=== PATIENT | female | born 1945 | race Two or more races ===

== ENCOUNTER 2018-01-16 02:06 | Emergency (ER) | payer MEDICAID, MEDICARE, OTHER ==
[~2018-01-16] VITALS: Ht 157.5 cm; Wt 72.6 kg
[~2018-01-16 02:06] MED LIST: AMLO10TA2 PO; ASPI-231 PO; FLUC100T3 PO; LIS10T PO; METF-370 PO; Pantoprazole Sodium Sesquihydr PO
[2018-01-16] MEDS ORDERED: ACETAMINOPHEN 325 MG TAB PO ONE ×2 (02:23→02:30)
[2018-01-16 07:14] LABS: Basophils # (auto) 0.1 uL; Basophils % (auto) 0.5 % (0.0-2.0); Eosinophils # (auto) 0 uL; Eosinophils % (auto) 0.2 % (0.0-7.0); Hematocrit 38.5 % (36.0-46.0); Hemoglobin 12.8 g/dL (12.2-16.2); Lymphocytes # (auto) 0.8 uL; Mean Corpuscular Hgb Conc. 33.2 g/dL (32.0-36.0); Mean Corpuscular Volume 87.4 fL (80.0-100.0); Monocytes % (auto) 6.2 % (0.0-12.0); Neutrophils # (auto) 14.3 uL; Neutrophils % (auto) 88.1 % (37.0-80.0); Nucleated Red Blood Cells % 0.1 %; Platelet Count (auto) 231 10^3/uL (140-450); Red Blood Cells 4.41 10^6/uL (4.0-5.20); White Blood Cell 16.2 10^3/uL (4.4-10.8)
[2018-01-16 07:16] LABS: Albumin 2.9 g/dL (3.4-5.0); BUN/Creatinine Ratio 15.3; Calcium 8.7 mg/dL (8.5-10.1)
[2018-01-16 07:19] LABS: Bilirubin, Total 1.1 mg/dL (0.2-1.0); Total Protein 7.8 g/dL (6.4-8.2)
[2018-01-16] MEDS ORDERED: SODIUM CHLORIDE 0.9% 2,000 ML IV ONE (07:36)
[2018-01-16 07:57] VITALS: BP 118/42
[2018-01-16 08:02] LABS: Urine Bacteria MANY /hpf (None Seen); Urine Blood 1+ /uL (Negative); Urine Mucus FEW (None Seen); Urine Specific Gravity 1.012 (1.001-1.035); Urine WBC 727 /hpf (0 - 5); Urine WBC Clumps PRESENT /hpf (None Seen)
[2018-01-16] MEDS ORDERED: LEVOFLOXACIN 500MG 100 ML IV ONE (08:45)
== END 2018-01-16 09:30 | disposition home or self-care (01) ==
LOC: ER 02:07
DX: N39.0 Urinary tract infection, site not specified (principal); E11.65 Type 2 diabetes mellitus with hyperglycemia; I10 Essential (primary) hypertension; J98.11 Atelectasis; Z90.710 Acquired absence of both cervix and uterus
CPT/HCPCS: 36415; 71045; 80053; 81001; 82962; 85025; 96361; 96365; 99285; J1956; J7030

== ENCOUNTER 2022-04-17 00:32 | Inpatient (IN) | payer OTHER, MEDICAID ==
[~2022-04-17] VITALS: Ht 162.6 cm; Wt 81.3 kg
[2022-04-17 00:30] VITALS: BP 150/52
[~2022-04-17 00:32] MED LIST changes: +AMLO-496 PO; -AMLO10TA2 PO; -ASPI-231 PO; +ASPI1TAB20 PO
[2022-04-17 01:43] LABS: Urine Bacteria MANY /hpf (None Seen); Urine Blood TRACE /uL (Negative); Urine Hyaline Cast MOD /lpf (0 - 2); Urine Mucus FEW (None Seen); Urine Specific Gravity 1.012 (1.001-1.035); Urine WBC 195 /hpf (0 - 5); Urine WBC Clumps PRESENT /hpf (None Seen)
[2022-04-17 02:14] LABS: Basophils # (auto) 0.1 10 ^3/uL (0-0.2); Basophils % (auto) 0.6 % (0.0-2.0); Eosinophils # (auto) 0.1 10 ^3/uL (0-0.8); Eosinophils % (auto) 0.9 % (0.0-7.0); Hematocrit 30.4 % (36.0-46.0); Lymphocytes # (auto) 1.4 10 ^3/uL (0.4-5.4); Lymphocytes % (auto) 11.5 % (10.0-50.0); Mean Corpuscular Hemoglobin 27.8 pg (28.0-32.0); Mean Corpuscular Volume 84.3 fL (80.0-100.0); Monocytes # (auto) 0.9 10 ^3/uL (0-1.3); Monocytes % (auto) 7.2 % (0.0-12.0); Neutrophils % (auto) 79.8 % (37.0-80.0); Red Blood Cells 3.61 10^6/uL (4.0-5.20); Red Cell Distribution Width 16.1 % (11.8-14.3); White Blood Cell 12.5 10^3/uL (4.4-10.8)
[2022-04-17 02:24] LABS: Albumin 3.2 g/dL (3.4-5.0); BUN/Creatinine Ratio 17.7; Calcium 8.9 mg/dL (8.5-10.1); Potassium 3.8 mmol/L (3.5-5.1)
[2022-04-17 02:27] LABS: Bilirubin, Total 0.6 mg/dL (0.2-1.0); Total Protein 7.6 g/dL (6.4-8.2)
[2022-04-17] MEDS ORDERED: ASPirin 81 mg TAB PO ONE (03:30)
[2022-04-17] MEDS ORDERED: MORPHINE SULFATE INJ 2 MG/ml SYRG IV PRN (07:00)
[2022-04-17] MEDS ORDERED: NITROGLYCERIN 0.4 MG SL TAB SL PRN (07:00)
[2022-04-17] MEDS ORDERED: ONDANSETRON HCL 4 MG/2 ML VIAL IV PRN (07:00)
[2022-04-17] MEDS ORDERED: ACETAMINOPHEN 325 MG TAB PO PRN (07:00)
[2022-04-17] MEDS ORDERED: DEXTROSE (50%) 50ML SYRG IV PRN (07:00)
[2022-04-17] MEDS: ACCU-CHEK COMFORT CURVE STRIP VI SCH ×4 (07:35→22:18)
[2022-04-17] MEDS: InsuLIN REG 1unit/0.01ml Soln (100units/ml) SC SCH ×4 (07:38→22:00)
[2022-04-17] MEDS: LEVOTHYROXINE SODIUM 112 MCG TAB PO SCH (07:41)
[2022-04-17] MEDS: cefTRIAXone 1GM/50ML D5W 50 ML IV SCH (08:58)
[2022-04-17] MEDS: PANTOPRAZOLE 40 MG TAB PO SCH (09:35)
[2022-04-17] MEDS: FUROSEMIDE 20 MG TAB PO SCH (09:35)
[2022-04-17] MEDS: ASPirin 81 mg TAB PO SCH (09:35)
[2022-04-17] MEDS: NIFEdipine ER 30 MG TAB PO SCH (09:36)
[2022-04-17] MEDS ORDERED: amLODIPine BESYLATE 5 MG TAB PO SCH (10:00)
[2022-04-17 18:48] VITALS: BP 167/60
[2022-04-17] MEDS: ATORVASTATIN 20 MG TAB PO SCH (22:16)
[2022-04-18] VITALS (8 sets, daily range): BP systolic 142–170; BP diastolic 44–83
[2022-04-18] MEDS ORDERED: FUR20T PO (00:17)
[2022-04-18] MEDS ORDERED: LISI-275 PO (00:17)
[2022-04-18] MEDS ORDERED: AMLO-489 PO (00:17)
[2022-04-18] MEDS ORDERED: INS7030I SC (00:17)
[2022-04-18] MEDS ORDERED: MET50T PO (00:17)
[2022-04-18] MEDS ORDERED: NIFE60TA61 (00:17)
[2022-04-18] MEDS ORDERED: ATOR10TA52 PO (00:17)
[2022-04-18] MEDS ORDERED: DOXY100C2 PO (00:17)
[2022-04-18] MEDS ORDERED: LEVO112T4 PO (00:17)
[2022-04-18 05:25] LABS: Eosinophils # (auto) 0.2 10 ^3/uL (0-0.8); Hemoglobin 9.9 g/dL (12.2-16.2); Lymphocytes # (auto) 1.2 10 ^3/uL (0.4-5.4); Mean Corpuscular Hemoglobin 26.5 pg (28.0-32.0); Monocytes # (auto) 0.6 10 ^3/uL (0-1.3); Neutrophils # (auto) 4.1 10 ^3/uL (1.6-8.6); Red Blood Cells 3.73 10^6/uL (4.0-5.20)
[2022-04-18 05:29] LABS: Basophils # (auto) 0 10 ^3/uL (0-0.2); Basophils % (auto) 0.8 % (0.0-2.0); Eosinophils % (auto) 2.7 % (0.0-7.0); Hematocrit 31.3 % (36.0-46.0); Lymphocytes % (auto) 19.4 % (10.0-50.0); Mean Corpuscular Hgb Conc. 31.5 g/dL (32.0-36.0); Mean Corpuscular Volume 83.9 fL (80.0-100.0); Monocytes % (auto) 9.5 % (0.0-12.0); Neutrophils % (auto) 67.6 % (37.0-80.0); Red Cell Distribution Width 16.3 % (11.8-14.3)
[2022-04-18 05:39] LABS: Calcium 8.8 mg/dL (8.5-10.1); Potassium 3.5 mmol/L (3.5-5.1)
[2022-04-18 05:42] LABS: BUN/Creatinine Ratio 16.4; Magnesium 2.2 mg/dL (1.6-2.6)
[2022-04-18] MEDS: LEVOTHYROXINE SODIUM 112 MCG TAB PO SCH (06:20)
[2022-04-18] MEDS: InsuLIN REG 1unit/0.01ml Soln (100units/ml) SC SCH ×4 (06:20→21:33)
[2022-04-18] MEDS: ACCU-CHEK COMFORT CURVE STRIP VI SCH ×4 (06:20→21:31)
[2022-04-18] MEDS ORDERED: ADENOSINE 68 MG in GIVE UN-DILUTED 0 ML IV STA (07:49)
[2022-04-18] MEDS: ASPirin 81 mg TAB PO SCH (08:24)
[2022-04-18] MEDS: cefTRIAXone 1GM/50ML D5W 50 ML IV SCH (08:24)
[2022-04-18] MEDS: FUROSEMIDE 20 MG TAB PO SCH (08:25)
[2022-04-18] MEDS: NIFEdipine ER 30 MG TAB PO SCH (08:25)
[2022-04-18] MEDS: PANTOPRAZOLE 40 MG TAB PO SCH (08:25)
[2022-04-18] MEDS: ATORVASTATIN 20 MG TAB PO SCH (21:31)
[2022-04-19] VITALS: BP 142/50
[2022-04-19 05:00] VITALS: BP 173/56
[2022-04-19 05:49] LABS: BUN/Creatinine Ratio 16.7; Calcium 8.8 mg/dL (8.5-10.1); Potassium 3.7 mmol/L (3.5-5.1)
[2022-04-19] MEDS: LEVOTHYROXINE SODIUM 112 MCG TAB PO SCH (06:20)
[2022-04-19] MEDS: ACCU-CHEK COMFORT CURVE STRIP VI SCH ×2 (06:21→11:30)
[2022-04-19] MEDS: InsuLIN REG 1unit/0.01ml Soln (100units/ml) SC SCH ×2 (06:21→12:00)
[2022-04-19 08:00] VITALS: BP 131/54
[2022-04-19] MEDS: FUROSEMIDE 20 MG TAB PO SCH (09:30)
[2022-04-19] MEDS: cefTRIAXone 1GM/50ML D5W 50 ML IV SCH (09:30)
[2022-04-19] MEDS: PANTOPRAZOLE 40 MG TAB PO SCH (09:30)
[2022-04-19] MEDS: ASPirin 81 mg TAB PO SCH (09:30)
[2022-04-19] MEDS: NIFEdipine ER 30 MG TAB PO SCH (09:31)
[2022-04-19] MEDS ORDERED: NIFE1TAB30 PO (10:53)
[2022-04-19 13:00] VITALS: BP 149/63
[2022-04-19] MEDS ORDERED: ASPI-325 PO (13:04)
[2022-04-19] MEDS ORDERED: CEPH-509 PO (13:06)
[2022-04-19 13:46] VITALS: BP 149/63
[2022-04-19] MEDS ORDERED: FURO1TAB33 PO (15:01)
== END 2022-04-19 15:20 | disposition home or self-care (01) | DRG 281 ==
LOC: ER 00:32 → EDBD 00:32 → TELE 06:55 → TELE-WESTW 17:30
PROVIDERS: ADMIT Nurse Practitioner; ATTEND Internal Medicine Geriatric Medicine
DX: I21.4 Non-ST elevation (NSTEMI) myocardial infarction (principal); E44.0 Moderate protein-calorie malnutrition; N39.0 Urinary tract infection, site not specified; N18.9 Chronic kidney disease, unspecified; Z20.822 Contact with and (suspected) exposure to COVID-19; E11.22 Type 2 diabetes mellitus with diabetic chronic kidney disease; E78.5 Hyperlipidemia, unspecified; I12.9 Hypertensive chronic kidney disease with stage 1 through stage 4 chronic kidney disease, or unspecified chronic kidney disease; Z79.4 Long term (current) use of insulin; Z90.710 Acquired absence of both cervix and uterus; Z68.30 Body mass index [BMI] 30.0-30.9, adult
CPT/HCPCS: 36415; 70450; 71045; 78452; 80048; 80053; 81001; 82962; 83735; 84484; 85025; 87086; 87088; 87186; 93005; 93017; 93306; 96365; 96375; 97163; G0378; J0153; J0696; J1815

== ENCOUNTER 2023-07-26 14:25 | Inpatient (IN) | payer OTHER, MEDICAID ==
[~2023-07-26] VITALS: Ht 152.4 cm; Wt 78.0 kg
[~2023-07-26 14:25] MED LIST changes: -AMLO-496 PO; +AMLO1TAB22 PO; +ASPI-325 PO; -ASPI1TAB20 PO; +ATOR10TA52 PO; +CEPH-509 PO; -FLUC100T3 PO; +FUR20T PO; +FURO1TAB33 PO; +INS7030I SC; +LEVO112T4 PO; -LIS10T PO; +LISI-275 PO; +MET50T PO; -METF-370 PO; +NIFE1TAB30 PO; -Pantoprazole Sodium Sesquihydr PO
[2023-07-26] MEDS ORDERED: SODIUM CHLORIDE 0.9% 1,000 ML IV ONE ×2 (14:45→16:15)
[2023-07-26] MEDS ORDERED: ACETAMINOPHEN 500 MG TAB PO ONE (14:45)
[2023-07-26 15:20] LABS: Basophils # (auto) 0 10 ^3/uL (0-0.2); Basophils % (auto) 0.3 % (0.0-2.0); Eosinophils # (auto) 0.1 10 ^3/uL (0-0.8); Eosinophils % (auto) 0.5 % (0.0-7.0); Hematocrit 34.6 % (36.0-46.0); Lymphocytes # (auto) 0.9 10 ^3/uL (0.4-5.4); Lymphocytes % (auto) 6.3 % (10.0-50.0); Mean Corpuscular Hemoglobin 27.6 pg (28.0-32.0); Mean Corpuscular Hgb Conc. 31.7 g/dL (32.0-36.0); Monocytes # (auto) 0.4 10 ^3/uL (0-1.3); Monocytes % (auto) 2.5 % (0.0-12.0); Neutrophils # (auto) 13.1 10 ^3/uL (1.6-8.6); Neutrophils % (auto) 90.4 % (37.0-80.0); Red Blood Cells 3.98 10^6/uL (4.0-5.20); White Blood Cell 14.5 10^3/uL (4.4-10.8)
[2023-07-26 15:37] LABS: Alanine Aminotransferase 13 U/L (7-40); Alkaline Phosphatase 94 U/L (46-116); Anion Gap 10 (5-15); Aspartate Aminotransferase 23 U/L (13-40); BUN/Creatinine Ratio 18.8 (10.0-20.0); Blood Urea Nitrogen 24 mg/dL (9-23); Carbon Dioxide 19 mmol/L (20-30); Chloride 108 mmol/L (98-107); Glucose 108 mg/dL (74-106); Lipase 23 U/L (12-53); Potassium 3.9 mmol/L (3.5-5.1); Sodium 137 mmol/L (136-145)
[2023-07-26 15:38] LABS: Albumin 3.8 g/dL (3.2-4.8); Bilirubin, Total 1.1 mg/dL (0.2-1.0); Total Protein 7.1 g/dL (5.7-8.2)
[2023-07-26 15:39] LABS: INR 1.01 (0.9-1.15); Prothrombin Time 10.6 sec (9.3-11.8)
[2023-07-26 15:59] LABS: Lactic Acid w/Reflex 2.5 mmol/L (0.4-2.0)
[2023-07-26] MEDS ORDERED: VANCOMYCIN 1GM/250ML 250 ML IV ONE (16:15)
[2023-07-26] MEDS ORDERED: PIPERACILLIN-TAZO 4.5GM 100 ML IV ONE (16:15)
[2023-07-26] MEDS ORDERED: ASPirin-EC 81 mg tab PO ONE (16:15)
[2023-07-26 18:36] VITALS: PULSE 100; RESP 18; O2SAT 95
[2023-07-26 19:11] LABS: COVID19 ANTIGEN SOFIA FIA NEGATIVE (NEGATIVE)
[2023-07-26 19:29] LABS: Urine Bacteria MANY /hpf (None Seen); Urine Blood TRACE /uL (Negative); Urine Clarity HAZY (Clear); Urine Color Yellow (Yellow); Urine Protein, UAD 2+ (Negative); Urine Specific Gravity 1.014 (1.001-1.035); Urine Urobilinogen Normal (Negative); Urine WBC 51 /hpf (0 - 5); Urine WBC Clumps PRESENT /hpf (None Seen); Urine pH 5.5 (5.0-8.0)
[2023-07-26 19:30] LABS: Rapid Influenza A Negative (Negative); Rapid Influenza B Negative (Negative)
[2023-07-26 20:04] VITALS: PULSE 84; RESP 16; O2SAT 97
[2023-07-26] MEDS ORDERED: ACETAMINOPHEN 325 MG TAB PO ONE (21:00)
[2023-07-26] MEDS ORDERED: VANCOMYCIN PER PHARMACY 0 MG IV SCH (22:00)
[2023-07-26] MEDS ORDERED: DOCUSATE SOD 100 MG CAP PO PRN (22:00)
[2023-07-26] MEDS ORDERED: ONDANSETRON HCL 4 MG/2 ML VIAL IV PRN (22:00)
[2023-07-26] MEDS ORDERED: DEXTROSE (50%) 50ML SYRG IV PRN (22:00)
[2023-07-26] MEDS ORDERED: HYDROcodone-ACET 5/325MG TAB PO PRN (22:00)
[2023-07-26] MEDS: ACCU-CHEK COMFORT CURVE STRIP VI SCH (23:28)
[2023-07-26] MEDS: InsuLIN REG 1unit/0.01ml Soln (100units/ml) SC SCH (23:35)
[2023-07-26] MEDS: SODIUM CHLORIDE 0.9% 1,000 ML IV SCH (23:35)
[2023-07-26] MEDS: ATORVASTATIN 20 MG TAB PO SCH (23:36)
[2023-07-27] MEDS ORDERED: MORPHINE SULFATE INJ 2 MG/ml SYRG IV PRN
[2023-07-27] MEDS ORDERED: NITROGLYCERIN 0.4 MG SL TAB SL PRN
[2023-07-27 06:08] LABS: Basophils # (auto) 0 10 ^3/uL (0-0.2); Basophils % (auto) 0.3 % (0.0-2.0); Eosinophils # (auto) 0 10 ^3/uL (0-0.8); Eosinophils % (auto) 0.1 % (0.0-7.0); Hematocrit 29.3 % (36.0-46.0); Hemoglobin 9.3 g/dL (12.2-16.2); Lymphocytes # (auto) 2.1 10 ^3/uL (0.4-5.4); Mean Corpuscular Hemoglobin 28.3 pg (28.0-32.0); Mean Corpuscular Hgb Conc. 31.6 g/dL (32.0-36.0); Mean Corpuscular Volume 89.4 fL (80.0-100.0); Monocytes % (auto) 5.1 % (0.0-12.0); Neutrophils # (auto) 16.2 10 ^3/uL (1.6-8.6); Neutrophils % (auto) 83.5 % (37.0-80.0); Red Blood Cells 3.28 10^6/uL (4.0-5.20); Red Cell Distribution Width 15.7 % (11.8-14.3); White Blood Cell 19.4 10^3/uL (4.4-10.8)
[2023-07-27] MEDS: ACCU-CHEK COMFORT CURVE STRIP VI SCH ×4 (06:08→21:33)
[2023-07-27] MEDS: InsuLIN REG 1unit/0.01ml Soln (100units/ml) SC SCH ×4 (06:22→21:34)
[2023-07-27] MEDS: LEVOTHYROXINE SODIUM 112 MCG TAB PO SCH (06:22)
[2023-07-27 06:24] LABS: Alanine Aminotransferase 14 U/L (7-40); Albumin 3.1 g/dL (3.2-4.8); Alkaline Phosphatase 66 U/L (46-116); Anion Gap 9 (5-15); Aspartate Aminotransferase 23 U/L (13-40); BUN/Creatinine Ratio 15.7 (10.0-20.0); Bilirubin, Total 1.7 mg/dL (0.2-1.0); Blood Urea Nitrogen 21 mg/dL (9-23); Calcium 8.4 mg/dL (8.5-10.1); Carbon Dioxide 18 mmol/L (20-30); Chloride 110 mmol/L (98-107); Glucose 174 mg/dL (74-106); Potassium 3.5 mmol/L (3.5-5.1); Sodium 137 mmol/L (136-145); Total Protein 5.8 g/dL (5.7-8.2)
[2023-07-27] MEDS: ACETAMINOPHEN 325 MG TAB PO PRN (07:12)
[2023-07-27 08:00] VITALS: PULSE 79; RESP 11; O2SAT 97
[2023-07-27] MEDS: ASPirin 81 mg TAB PO SCH (09:36)
[2023-07-27] MEDS: cefTRIAXone 1GM/50ML D5W 50 ML IV SCH (09:37)
[2023-07-27] MEDS: SODIUM CHLORIDE 0.9% 1,000 ML IV SCH (14:40)
[2023-07-27 17:24] VITALS: BP 162/67; PULSE 77; RESP 16; TEMP 97.7; O2SAT 97
[2023-07-27 17:31] VITALS: BP 162/67; PULSE 77; RESP 16; TEMP 97.7; O2SAT 97
[2023-07-27] MEDS ORDERED: FURO20TA3 PO (18:40)
[2023-07-27] MEDS: VANCOMYCIN 1GM/250ML 250 ML IV SCH (20:49)
[2023-07-27] MEDS: hydrALAZINE HCL 20 MG/ML VL IV PRN (21:37)
[2023-07-27] MEDS: ATORVASTATIN 20 MG TAB PO SCH (21:37)
[2023-07-27 22:06] VITALS: BP 170/60; PULSE 81; RESP 18; TEMP 98.4; O2SAT 97
[2023-07-28] MEDS ORDERED: CARV6.2551 PO (00:24)
[2023-07-28] MEDS ORDERED: NITR1CAP23 PO (00:24)
[2023-07-28] MEDS: SODIUM CHLORIDE 0.9% 1,000 ML IV SCH ×2 (02:25→23:57)
[2023-07-28] MEDS: ACCU-CHEK COMFORT CURVE STRIP VI SCH ×4 (06:44→21:51)
[2023-07-28] MEDS: LEVOTHYROXINE SODIUM 112 MCG TAB PO SCH (06:44)
[2023-07-28] MEDS: InsuLIN REG 1unit/0.01ml Soln (100units/ml) SC SCH ×4 (06:44→21:57)
[2023-07-28] MEDS: ACETAMINOPHEN 325 MG TAB PO PRN (08:00)
[2023-07-28 08:10] VITALS: BP 170/84; PULSE 80; PULSE 81; RESP 20; TEMP 97.8; O2SAT 98
[2023-07-28] MEDS: hydrALAZINE HCL 20 MG/ML VL IV PRN ×2 (08:59→17:26)
[2023-07-28] MEDS: ASPirin 81 mg TAB PO SCH (09:00)
[2023-07-28] MEDS: cefTRIAXone 1GM/50ML D5W 50 ML IV SCH (09:00)
[2023-07-28] MEDS ORDERED: hydrALAZINE HCL 20 MG/ML VL IV ONE (11:45)
[2023-07-28 12:10] VITALS: BP 197/83; PULSE 89; RESP 20; TEMP 98.1; O2SAT 100
[2023-07-28] MEDS ORDERED: METOPROLOL TARTRATE 50 MG TAB PO ONE (12:30)
[2023-07-28] MEDS ORDERED: LISINOPRIL 20 MG TAB PO ONE (12:30)
[2023-07-28 16:05] VITALS: BP 159/82; PULSE 74; RESP 16; TEMP 98.3; O2SAT 99
[2023-07-28 20:00] VITALS: BP 170/84; PULSE 76; PULSE 79; PULSE 80; RESP 20; TEMP 97.8; O2SAT 98
[2023-07-28] MEDS: VANCOMYCIN 1GM/250ML 250 ML IV SCH (21:33)
[2023-07-28] MEDS: ENOXAPARIN SOD 80 MG/0.8ML SYRINGE SC SCH (21:49)
[2023-07-28] MEDS: ATORVASTATIN 20 MG TAB PO SCH (21:49)
[2023-07-28] MEDS: METOPROLOL TARTRATE 50 MG TAB PO SCH (21:49)
[2023-07-28 22:00] VITALS: BP 172/57; PULSE 79; RESP 20; TEMP 98.3; O2SAT 98
[2023-07-29] VITALS (9 sets, daily range): BP systolic 154–175; BP diastolic 48–73; PULSE 64–80; RESP 16–20; TEMP 98–98.3; O2SAT 75–97
[2023-07-29] MEDS: LEVOTHYROXINE SODIUM 112 MCG TAB PO SCH (06:10)
[2023-07-29] MEDS: ACCU-CHEK COMFORT CURVE STRIP VI SCH ×4 (06:10→21:35)
[2023-07-29] MEDS: hydrALAZINE HCL 20 MG/ML VL IV PRN ×2 (06:11→13:14)
[2023-07-29] MEDS: InsuLIN REG 1unit/0.01ml Soln (100units/ml) SC SCH ×4 (06:23→21:44)
[2023-07-29 06:39] LABS: Basophils # (auto) 0.1 10 ^3/uL (0-0.2); Basophils % (auto) 0.7 % (0.0-2.0); Eosinophils # (auto) 0.2 10 ^3/uL (0-0.8); Hematocrit 30.8 % (36.0-46.0); Hemoglobin 9.8 g/dL (12.2-16.2); Lymphocytes # (auto) 1.3 10 ^3/uL (0.4-5.4); Lymphocytes % (auto) 17.7 % (10.0-50.0); Mean Corpuscular Hemoglobin 27.9 pg (28.0-32.0); Mean Corpuscular Hgb Conc. 31.8 g/dL (32.0-36.0); Mean Corpuscular Volume 87.6 fL (80.0-100.0); Monocytes # (auto) 0.5 10 ^3/uL (0-1.3); Neutrophils # (auto) 5.4 10 ^3/uL (1.6-8.6); Neutrophils % (auto) 72.6 % (37.0-80.0); Red Blood Cells 3.52 10^6/uL (4.0-5.20); Red Cell Distribution Width 15.6 % (11.8-14.3); White Blood Cell 7.5 10^3/uL (4.4-10.8)
[2023-07-29 07:12] LABS: Calcium 8.6 mg/dL (8.7-10.4); Chloride 109 mmol/L (98-107); Potassium 3.4 mmol/L (3.5-5.1); Sodium 137 mmol/L (136-145)
[2023-07-29 07:13] LABS: Anion Gap 7 (5-15); Carbon Dioxide 21 mmol/L (20-30)
[2023-07-29 07:18] LABS: BUN/Creatinine Ratio 13.3 (10.0-20.0); Blood Urea Nitrogen 14 mg/dL (9-23); Glucose 129 mg/dL (74-106)
[2023-07-29] MEDS: cefTRIAXone 1GM/50ML D5W 50 ML IV SCH (08:58)
[2023-07-29] MEDS: ENOXAPARIN SOD 80 MG/0.8ML SYRINGE SC SCH ×2 (09:01→21:35)
[2023-07-29] MEDS: ASPirin 81 mg TAB PO SCH (09:02)
[2023-07-29] MEDS: METOPROLOL TARTRATE 50 MG TAB PO SCH ×2 (09:02→21:36)
[2023-07-29] MEDS: LISINOPRIL 20 MG TAB PO SCH (09:04)
[2023-07-29] MEDS ORDERED: POTASSIUM EFFERVESENT TAB 25 MEQ PO ONE (12:30)
[2023-07-29] MEDS ORDERED: ATOR10TA52 PO (15:58)
[2023-07-29] MEDS ORDERED: AMLO1TAB22 PO (15:58)
[2023-07-29] MEDS ORDERED: FERR325T24 PO (15:58)
[2023-07-29] MEDS ORDERED: ACET-1881 PO (15:58)
[2023-07-29] MEDS ORDERED: GABA100C PO (15:58)
[2023-07-29] MEDS ORDERED: LISI20TA56 PO (15:58)
[2023-07-29] MEDS ORDERED: LEVO125T7 PO (15:58)
[2023-07-29] MEDS ORDERED: LISI10TA34 PO (15:58)
[2023-07-29] MEDS ORDERED: FURO1TAB33 PO (15:58)
[2023-07-29] MEDS ORDERED: METO-158 PO (15:58)
[2023-07-29] MEDS ORDERED: CARV6.2551 PO (15:58)
[2023-07-29] MEDS ORDERED: NIFE1TAB30 PO (15:58)
[2023-07-29] MEDS ORDERED: NITR-87 PO (15:58)
[2023-07-29] MEDS ORDERED: SODB50I PO (15:58)
[2023-07-29] MEDS ORDERED: FURO1TAB31 PO (15:58)
[2023-07-29] MEDS: SODIUM CHLORIDE 0.9% 1,000 ML IV SCH (16:40)
[2023-07-29] MEDS: VANCOMYCIN 1GM/250ML 250 ML IV SCH (20:56)
[2023-07-29] MEDS: ATORVASTATIN 20 MG TAB PO SCH (21:35)
[2023-07-30] VITALS (7 sets, daily range): BP systolic 126–186; BP diastolic 52–66; PULSE 61–76; RESP 16–17; TEMP 97.6–98.3; O2SAT 93–98
[2023-07-30] MEDS: ACCU-CHEK COMFORT CURVE STRIP VI SCH ×4 (06:25→21:56)
[2023-07-30] MEDS: InsuLIN REG 1unit/0.01ml Soln (100units/ml) SC SCH ×4 (06:28→21:55)
[2023-07-30] MEDS: LEVOTHYROXINE SODIUM 112 MCG TAB PO SCH (06:29)
[2023-07-30] MEDS: cefTRIAXone 1GM/50ML D5W 50 ML IV SCH (08:36)
[2023-07-30] MEDS: SODIUM CHLORIDE 0.9% 1,000 ML IV SCH (09:20)
[2023-07-30] MEDS: LISINOPRIL 20 MG TAB PO SCH (10:04)
[2023-07-30] MEDS: ASPirin 81 mg TAB PO SCH (10:04)
[2023-07-30] MEDS: METOPROLOL TARTRATE 50 MG TAB PO SCH ×2 (10:05→21:47)
[2023-07-30] MEDS: ENOXAPARIN SOD 80 MG/0.8ML SYRINGE SC SCH ×2 (10:05→21:56)
[2023-07-30] MEDS: VANCOMYCIN 1GM/250ML 250 ML IV SCH (21:03)
[2023-07-30] MEDS: ATORVASTATIN 20 MG TAB PO SCH (21:47)
[2023-07-31] VITALS (9 sets, daily range): BP systolic 110–193; BP diastolic 50–84; PULSE 2–83; RESP 16–18; TEMP 97.3–98.4; O2SAT 90–99
[2023-07-31] MEDS: hydrALAZINE HCL 20 MG/ML VL IV PRN ×2 (00:56→17:04)
[2023-07-31] MEDS: SODIUM CHLORIDE 0.9% 1,000 ML IV SCH ×2 (02:00→17:10)
[2023-07-31] MEDS: ACCU-CHEK COMFORT CURVE STRIP VI SCH ×4 (06:32→22:03)
[2023-07-31] MEDS: InsuLIN REG 1unit/0.01ml Soln (100units/ml) SC SCH ×4 (06:35→22:00)
[2023-07-31] MEDS: LEVOTHYROXINE SODIUM 112 MCG TAB PO SCH (06:37)
[2023-07-31 06:41] LABS: Chloride 109 mmol/L (98-107); Potassium 4.1 mmol/L (3.5-5.1); Sodium 136 mmol/L (136-145)
[2023-07-31 06:42] LABS: Anion Gap 9 (5-15); Calcium 8.7 mg/dL (8.7-10.4); Carbon Dioxide 18 mmol/L (20-30)
[2023-07-31 06:47] LABS: Glucose 150 mg/dL (74-106)
[2023-07-31 06:48] LABS: BUN/Creatinine Ratio 6.9 (10.0-20.0); Blood Urea Nitrogen 8 mg/dL (9-23); Magnesium 2.3 mg/dL (1.6-2.6)
[2023-07-31 07:33] LABS: Basophils # (auto) 0 10 ^3/uL (0-0.2); Basophils % (auto) 0.6 % (0.0-2.0); Eosinophils # (auto) 0.1 10 ^3/uL (0-0.8); Eosinophils % (auto) 0.9 % (0.0-7.0); Hematocrit 35.5 % (36.0-46.0); Hemoglobin 10.7 g/dL (12.2-16.2); Lymphocytes # (auto) 1.2 10 ^3/uL (0.4-5.4); Lymphocytes % (auto) 13.7 % (10.0-50.0); Mean Corpuscular Hemoglobin 28.9 pg (28.0-32.0); Mean Corpuscular Hgb Conc. 30.2 g/dL (32.0-36.0); Mean Corpuscular Volume 95.8 fL (80.0-100.0); Monocytes # (auto) 0.5 10 ^3/uL (0-1.3); Monocytes % (auto) 5.8 % (0.0-12.0); Neutrophils # (auto) 6.9 10 ^3/uL (1.6-8.6); Nucleated Red Blood Cells % 0.2 %; Red Cell Distribution Width 16.5 % (11.8-14.3); White Blood Cell 8.7 10^3/uL (4.4-10.8)
[2023-07-31] MEDS: cefTRIAXone 1GM/50ML D5W 50 ML IV SCH (09:10)
[2023-07-31] MEDS: ASPirin 81 mg TAB PO SCH (09:40)
[2023-07-31] MEDS: LISINOPRIL 20 MG TAB PO SCH (09:41)
[2023-07-31] MEDS: METOPROLOL TARTRATE 50 MG TAB PO SCH ×2 (09:41→22:03)
[2023-07-31] MEDS: ENOXAPARIN SOD 80 MG/0.8ML SYRINGE SC SCH ×2 (09:42→22:00)
[2023-07-31 11:45] LABS: Urine Bacteria NONE SEEN /hpf (None Seen); Urine Blood 3+ /uL (Negative); Urine Clarity CLOUDY (Clear); Urine Color Red (Yellow); Urine Protein, UAD 2+ (Negative); Urine Urobilinogen Normal (Negative); Urine WBC 139 /hpf (0 - 5)
[2023-07-31 12:05] LABS: Urine Specific Gravity 1.015 (1.001-1.035)
[2023-07-31] MEDS: ATORVASTATIN 20 MG TAB PO SCH (22:02)
[2023-08-01] VITALS (9 sets, daily range): BP systolic 126–192; BP diastolic 35–68; PULSE 58–82; RESP 14–22; TEMP 97.7–98.4; O2SAT 91–98
[2023-08-01] MEDS: hydrALAZINE HCL 20 MG/ML VL IV PRN ×2 (02:31→17:04)
[2023-08-01] MEDS: LEVOTHYROXINE SODIUM 112 MCG TAB PO SCH (06:17)
[2023-08-01] MEDS: InsuLIN REG 1unit/0.01ml Soln (100units/ml) SC SCH ×4 (06:21→21:00)
[2023-08-01] MEDS: ACCU-CHEK COMFORT CURVE STRIP VI SCH ×4 (06:21→21:00)
[2023-08-01] MEDS: cefTRIAXone 1GM/50ML D5W 50 ML IV SCH (09:39)
[2023-08-01] MEDS: ASPirin 81 mg TAB PO SCH (09:41)
[2023-08-01] MEDS: LISINOPRIL 20 MG TAB PO SCH (09:41)
[2023-08-01] MEDS: METOPROLOL TARTRATE 50 MG TAB PO SCH ×2 (09:42→22:50)
[2023-08-01] MEDS: ENOXAPARIN SOD 80 MG/0.8ML SYRINGE SC SCH ×2 (10:00→21:00)
[2023-08-01] MEDS: SODIUM CHLORIDE 0.9% 1,000 ML IV SCH (10:02)
[2023-08-01] MEDS ORDERED: hydrALAZINE HCL 20 MG/ML VL IV ONE (19:00)
[2023-08-01] MEDS: ATORVASTATIN 20 MG TAB PO SCH (20:54)
[2023-08-02] VITALS (7 sets, daily range): BP systolic 121–193; BP diastolic 52–71; PULSE 67–83; RESP 14–18; TEMP 36.9; O2SAT 96–98
[2023-08-02] MEDS ORDERED: LATA0.008 EACHEYE (00:25)
[2023-08-02] MEDS: SODIUM CHLORIDE 0.9% 1,000 ML IV SCH ×2 (04:00→09:25)
[2023-08-02] MEDS: LEVOTHYROXINE SODIUM 112 MCG TAB PO SCH (05:49)
[2023-08-02] MEDS: ACCU-CHEK COMFORT CURVE STRIP VI SCH ×4 (05:50→21:50)
[2023-08-02] MEDS: InsuLIN REG 1unit/0.01ml Soln (100units/ml) SC SCH ×4 (05:54→21:53)
[2023-08-02] MEDS: ASPirin 81 mg TAB PO SCH (09:00)
[2023-08-02] MEDS: cefTRIAXone 1GM/50ML D5W 50 ML IV SCH (09:00)
[2023-08-02] MEDS: METOPROLOL TARTRATE 50 MG TAB PO SCH ×2 (09:01→21:41)
[2023-08-02] MEDS: LISINOPRIL 20 MG TAB PO SCH (09:01)
[2023-08-02] MEDS: ENOXAPARIN SOD 80 MG/0.8ML SYRINGE SC SCH ×2 (09:25→21:43)
[2023-08-02] MEDS: hydrALAZINE HCL 20 MG/ML VL IV PRN ×2 (13:26→21:40)
[2023-08-02] MEDS: ATORVASTATIN 20 MG TAB PO SCH (21:43)
[2023-08-02] MEDS: LATANOPROST 0.005 % OPTH(EYE) SOL 2.5ML EACHEYE SCH (22:17)
[2023-08-03 05:00] VITALS: BP 126/44; PULSE 68; RESP 14; TEMP 98.1; O2SAT 98
[2023-08-03 06:21] LABS: Basophils # (auto) 0.1 10 ^3/uL (0-0.2); Basophils % (auto) 0.8 % (0.0-2.0); Eosinophils # (auto) 0.2 10 ^3/uL (0-0.8); Eosinophils % (auto) 3.1 % (0.0-7.0); Hematocrit 29.7 % (36.0-46.0); Hemoglobin 9.6 g/dL (12.2-16.2); Lymphocytes # (auto) 1.5 10 ^3/uL (0.4-5.4); Lymphocytes % (auto) 19.3 % (10.0-50.0); Mean Corpuscular Hemoglobin 28.4 pg (28.0-32.0); Mean Corpuscular Hgb Conc. 32.4 g/dL (32.0-36.0); Mean Corpuscular Volume 87.7 fL (80.0-100.0); Monocytes # (auto) 0.7 10 ^3/uL (0-1.3); Monocytes % (auto) 8.9 % (0.0-12.0); Neutrophils # (auto) 5.4 10 ^3/uL (1.6-8.6); Neutrophils % (auto) 67.9 % (37.0-80.0); Nucleated Red Blood Cells % 0.1 %; Red Blood Cells 3.39 10^6/uL (4.0-5.20); Red Cell Distribution Width 15.5 % (11.8-14.3); White Blood Cell 7.9 10^3/uL (4.4-10.8)
[2023-08-03] MEDS: LEVOTHYROXINE SODIUM 112 MCG TAB PO SCH (06:34)
[2023-08-03] MEDS: ACCU-CHEK COMFORT CURVE STRIP VI SCH ×4 (06:38→22:17)
[2023-08-03] MEDS: InsuLIN REG 1unit/0.01ml Soln (100units/ml) SC SCH ×4 (06:38→22:00)
[2023-08-03 06:52] LABS: Chloride 109 mmol/L (98-107); Potassium 3.5 mmol/L (3.5-5.1); Sodium 139 mmol/L (136-145)
[2023-08-03 06:53] LABS: Anion Gap 9 (5-15); Calcium 8.9 mg/dL (8.5-10.1); Carbon Dioxide 21 mmol/L (20-30)
[2023-08-03 06:58] LABS: BUN/Creatinine Ratio 11.8 (10.0-20.0); Blood Urea Nitrogen 17 mg/dL (9-23); Glucose 110 mg/dL (74-106)
[2023-08-03 08:00] VITALS: PULSE 79; RESP 18; O2SAT 96
[2023-08-03 08:30] VITALS: BP 161/71; PULSE 79; RESP 18; TEMP 97.8; O2SAT 96
[2023-08-03] MEDS: cefTRIAXone 1GM/50ML D5W 50 ML IV SCH (09:07)
[2023-08-03] MEDS: ASPirin 81 mg TAB PO SCH (11:02)
[2023-08-03] MEDS: METOPROLOL TARTRATE 50 MG TAB PO SCH ×2 (11:03→22:16)
[2023-08-03] MEDS: LISINOPRIL 20 MG TAB PO SCH (11:03)
[2023-08-03] MEDS: ENOXAPARIN SOD 80 MG/0.8ML SYRINGE SC SCH (11:06)
[2023-08-03] MEDS: ERTAPENEM SOD INJ 1 GM in SODIUM CHL 0.9% 50 ML IV SCH (11:20)
[2023-08-03 12:30] VITALS: BP 158/86; PULSE 80; RESP 18; TEMP 98; O2SAT 95
[2023-08-03] MEDS: SODIUM CHLORIDE 0.9% 1,000 ML IV SCH (13:20)
[2023-08-03] MEDS: hydrALAZINE HCL 20 MG/ML VL IV PRN ×2 (13:27→23:34)
[2023-08-03 16:57] VITALS: BP 146/79; PULSE 79; RESP 18; TEMP 98.3; O2SAT 97
[2023-08-03 20:00] VITALS: BP 179/87; PULSE 74; RESP 18; TEMP 98.2; O2SAT 97
[2023-08-03] MEDS: LATANOPROST 0.005 % OPTH(EYE) SOL 2.5ML EACHEYE SCH (22:15)
[2023-08-03] MEDS: ATORVASTATIN 20 MG TAB PO SCH (22:16)
[2023-08-04] MEDS: SODIUM CHLORIDE 0.9% 1,000 ML IV SCH (06:29)
[2023-08-04] MEDS: InsuLIN REG 1unit/0.01ml Soln (100units/ml) SC SCH ×2 (06:29→11:55)
[2023-08-04] MEDS: ACCU-CHEK COMFORT CURVE STRIP VI SCH ×2 (06:29→11:50)
[2023-08-04] MEDS: LEVOTHYROXINE SODIUM 112 MCG TAB PO SCH (06:29)
[2023-08-04 06:47] LABS: Anion Gap 8 (5-15); Carbon Dioxide 21 mmol/L (20-30); Chloride 110 mmol/L (98-107); Potassium 3.6 mmol/L (3.5-5.1); Sodium 139 mmol/L (136-145)
[2023-08-04 06:48] LABS: Calcium 8.4 mg/dL (8.7-10.4)
[2023-08-04 06:53] LABS: BUN/Creatinine Ratio 12.3 (10.0-20.0); Blood Urea Nitrogen 16 mg/dL (9-23); Glucose 131 mg/dL (74-106)
[2023-08-04 08:00] VITALS: PULSE 80; RESP 20; O2SAT 96
[2023-08-04 08:30] VITALS: BP 160/64; PULSE 80; RESP 20; TEMP 97.6; O2SAT 96
[2023-08-04] MEDS ORDERED: ENOXAPARIN SOD 80 MG/0.8ML SYRINGE SC SCH (10:00)
[2023-08-04] MEDS: METOPROLOL TARTRATE 50 MG TAB PO SCH (10:20)
[2023-08-04] MEDS: LISINOPRIL 20 MG TAB PO SCH (10:21)
[2023-08-04] MEDS: ASPirin 81 mg TAB PO SCH (10:21)
[2023-08-04] MEDS: ERTAPENEM SOD INJ 1 GM in SODIUM CHL 0.9% 50 ML IV SCH (10:23)
[2023-08-04 12:30] VITALS: BP 184/66; PULSE 67; RESP 16; TEMP 98.2; O2SAT 97
[2023-08-04 13:45] VITALS: BP 127/67; PULSE 67; RESP 16; TEMP 98.2; O2SAT 97
== END 2023-08-04 16:40 | disposition home health service (06) | DRG 871 ==
LOC: ER 14:25 → EDBD 14:25 → TELE 07-27 → TELE-WESTW 07-27 17:40 → WEST WING 08-01 14:29
PROVIDERS: ADMIT Nurse Practitioner Family; ATTEND Internal Medicine Geriatric Medicine
PROC: 05HF33Z Insertion of Infusion Device into Left Cephalic Vein, Percutaneous Approach (ICD-10-PCS; principal; 2023-08-03)
PROC: B54NZZA Ultrasonography of Left Upper Extremity Veins, Guidance (ICD-10-PCS; 2023-08-03)
DX: A41.51 Sepsis due to Escherichia coli [E. coli] (principal); G93.41 Metabolic encephalopathy; I21.A1 Myocardial infarction type 2; N39.0 Urinary tract infection, site not specified; N17.9 Acute kidney failure, unspecified; Z16.12 Extended spectrum beta lactamase (ESBL) resistance; Z16.19 Resistance to other specified beta lactam antibiotics; E66.9 Obesity, unspecified; Z20.822 Contact with and (suspected) exposure to COVID-19; I11.0 Hypertensive heart disease with heart failure; E87.6 Hypokalemia; E11.9 Type 2 diabetes mellitus without complications; E07.9 Disorder of thyroid, unspecified; E78.5 Hyperlipidemia, unspecified; I50.9 Heart failure, unspecified; M19.90 Unspecified osteoarthritis, unspecified site; M79.10 Myalgia, unspecified site; Z68.33 Body mass index [BMI] 33.0-33.9, adult; Z79.4 Long term (current) use of insulin; Z90.710 Acquired absence of both cervix and uterus
CPT/HCPCS: 36415; 80048; 80053; 80202; 81001; 82565; 82962; 83735; 84443; 84484; 85025; 87086; 87088; 87186; 93005; 97110; 97116; 97163; 97530; 99291; G0378; J0696; J1335; J1815; J2543